=== PATIENT | male | born 1930 | race Caucasian/White ===

== ENCOUNTER → 2016-03-16 | Outpatient (CLI) | payer MEDICARE ==
[~2016-03-16] MED LIST: ACET325S8 PO; ALLO300 PO; ALPR.25 PO; ASPI81 PO; ESCI10TA PO; GLIM4TAB PO; HYDR12.56 PO; LOSA100T PO; METF1000 PO; ROSU20 PO; TAB-TAB PO; VITA500T10 PO; VITD400 PO
--- NOTE | 2016-03-18 08:47 | RSPPFT ---
DATE OF PROCEDURE: 03/16/16 COMMENTS: Spirometry with FVC of 1.9 predicted 4.3, FEV1 of 1.5 predicted 2.6, FEV1/FVC ratio 77% predicted 61%. Lung volumes show decreased TLC at at 3.9 predicted 7.2. DLCO is 28% of predicted. IMPRESSION: On the basis of the above, patient has a severe restrictive lung defect.
== END ==
LOC: HRSP 10:53
PROVIDERS: ATTEND Internal Medicine Pulmonary Disease
DX: J84.10 Pulmonary fibrosis, unspecified (principal)
CPT/HCPCS: 94060; 94726; 94729

== ENCOUNTER 2017-08-04 10:19 | Emergency (ER) | payer MEDICARE ==
[2017-08-04 10:33] VITALS: BP 137/70; PULSE 106; RESP 15; TEMP 98.4; O2SAT 94
--- NOTE | 2017-08-04 10:41 | PD ---
HPI Chief Complaint: GI Complaint Time Seen by Provider: 10:38 Travel History International Travel<30 days: No Contact w/Intl Traveler<30days: No Traveled to known affect area: No History of Present Illness HPI Patient comes in complaining of 2 days worth of black tarry stools, and now associated with generalized weakness and dizziness. Patient denies any alleviating or aggravating factors. Patient denies any associated factors such as fever, chest pain, abdominal pain, back pain, flank pain, sore throat/cough/ runny nose. Past medical history significant for oral surgery, hard of hearing, dizziness, quadruple bypass CABG in 2003, hypercholesterolemia, hypertension, pulmonary fibrosis, sleep apnea, bladder tumor removed, kidney stones, type 2 diabetes, PFSH Past Medical History Arthritis: Yes Asthma: No Autoimmune Disease: No Heart Rhythm Problems: No Cancer: Yes (BLADDER, SKIN) Cardiac Catheterization: Yes (NO STENTS) Cardiovascular Problems: Yes (BYPASS) High Cholesterol: Yes Chest Pain: No Congestive Heart Failure: No COPD: No Cerebrovascular Accident: No Diabetes: Yes (TYPE 2) Endocrine: Yes GERD: No Glaucoma: No Genitourinary: Yes (BLADDER TUMOR (REMOVED)) Headaches: No Hepatitis: No Hiatal Hernia: No Hypertension: Yes Immune Disorder: Yes Kidney Stones: Yes (IN AND ) Musculoskeletal: No Neurologic: No Psychiatric: Yes (CLAUSTRAPHOBIA, ANXIETY) Respiratory: Yes (PULMONARY FIBROSIS) Myocardial Infarction: No Renal Failure: No Seizures: No Sleep Apnea: Yes Thyroid Disease: No Ulcer: No Past Surgical History Abdominal Surgery: No AICD: No Body Medical Devices: STERNAL WIRES Cardiac Surgery: Yes (CABG X4) Coronary Artery Bypass Graft: Yes (2003) Ear Surgery: No Endocrine Surgery: No Eye Surgery: No Genitourinary Surgery: Yes (BLADDER CANCER TRANS URETHRAL) Gynecologic Surgery: No Oral Surgery: Yes (WISDOM TEETH REMOVED X4; PERMANENT UPPER BRIDGE) Pacemaker: No Thoracic Surgery: No Social History Alcohol Use: Yes (GLASS OF WINE NIGHTLY) Tobacco Use: No (QUIT 1980) Substance Use: No Allergies-Medications (Allergen,Severity, Reaction): Coded Allergies: No Known Allergies (Verified , 08/02/14) Reported Meds & Prescriptions Reported Meds & Active Scripts Active Reported Acetaminophen 325 Mg Tab 325 Mg PO DAILY Vitamin D-3 (Cholecalciferol) 400 Unit Tab 400 Unit PO DAILY Multivitamin (Multivitamins) 1 Tab Tab 1 Tab PO DAILY Metformin HCl 1,000 Mg Tab 1,000 Mg PO DAILY Losartan Potassium 100 MG (Losartan Potassium) 100 Mg Tab 100 Mg PO DAILY Glimepiride 4 Mg Tab 4 Mg PO BID Escitalopram Oxalate 10 Mg Tab 10 Mg PO DAILY Xanax 0.25 Mg (Alprazolam) Alprazolam 0.25 mg Tab 1 Tab PO BID Aspirin 81 Mg Tab 81 Mg PO DAILY Vitamin C (Ascorbic Acid) 500 Mg Tab 500 Mg PO DAILY Hctz (Hydrochlorothiazide) 12.5 Mg Cap 12.5 Mg PO DAILY Zyloprim (Allopurinol) 300 Mg Tab 300 Mg PO DAILY Crestor (Rosuvastatin Calcium) 20 Mg Tab 20 Mg PO DAILY Review of Systems General / Constitutional: No: Fever Eyes: No: Visual changes HENT: No: Headaches Cardiovascular: No: Chest Pain or Discomfort Respiratory: No: Shortness of Breath Gastrointestinal: Positive: Other Genitourinary: No: Dysuria Musculoskeletal: No: Pain Skin: No Rash Neurologic: No: Weakness Psychiatric: No: Depression Endocrine: No: Polydipsia Hematologic/Lymphatic: No: Easy Bruising Physical Exam Narrative GENERAL: SKIN: Warm and dry. HEAD: Atraumatic. Normocephalic. EYES: Pupils equal and round. No scleral icterus. No injection or drainage. ENT: No nasal bleeding or discharge. Mucous membranes pink and moist. NECK: Trachea midline. No JVD. CARDIOVASCULAR: Regular rate and rhythm. RESPIRATORY: No accessory muscle use. Clear to auscultation. Breath sounds equal bilaterally. GASTROINTESTINAL: Abdomen soft, non-tender, nondistended. MUSCULOSKELETAL: Extremities without clubbing, cyanosis, or edema. No obvious deformities. NEUROLOGICAL: Awake and alert. No obvious cranial nerve deficits. Motor grossly within normal limits. Five out of 5 muscle strength in the arms and legs. Normal speech. PSYCHIATRIC: Appropriate mood and affect; insight and judgment normal. Data Data Last Documented VS Vital Signs Date Time Temp Pulse Resp B/P (MAP) Pulse Ox O2 Delivery O2 Flow Rate FiO2 08/04/17 10:53 95 16 140/81 (100) 96 Room Air 08/04/17 10:33 98.4 Orders Orders Electrocardiogram (08/04/17 10:42) B-Type Natriuretic Peptide (08/04/17 10:42) Ckmb (Isoenzyme) Profile (08/04/17 10:42) Complete Blood Count With Diff (08/04/17 10:42) Comprehensive Metabolic Panel (08/04/17 10:42) Prothrombin Time / Inr (Pt) (08/04/17 10:42) Act Partial Throm Time (Ptt) (08/04/17 10:42) Troponin I (08/04/17 10:42) Lipase (08/04/17 10:42) Ecg Monitoring (08/04/17 10:42) Bilateral Bp Monitoring (08/04/17 10:42) Iv Access Insert/Monitor (08/04/17 10:42) Oximetry (08/04/17 10:42) Sodium Chloride 0.9% Flush (Ns Flush) (08/04/17 10:45) Type And Screen (08/04/17 10:42) Ct Abd/Pel W/O Iv Contrast (08/04/17 10:42) Labs Laboratory Tests Test 08/04/17 11:00 White Blood Count 8.7 TH/MM3 Red Blood Count 4.62 MIL/MM3 Hemoglobin 13.3 GM/DL Hematocrit 40.6 % Mean Corpuscular Volume 87.9 FL Mean Corpuscular Hemoglobin 28.8 PG Mean Corpuscular Hemoglobin Concent 32.8 % Red Cell Distribution Width 14.9 % Platelet Count 249 TH/MM3 Mean Platelet Volume 8.0 FL Neutrophils (%) (Auto) 71.3 % Lymphocytes (%) (Auto) 17.9 % Monocytes (%) (Auto) 8.7 % Eosinophils (%) (Auto) 1.5 % Basophils (%) (Auto) 0.6 % Neutrophils # (Auto) 6.2 TH/MM3 Lymphocytes # (Auto) 1.6 TH/MM3 Monocytes # (Auto) 0.8 TH/MM3 Eosinophils # (Auto) 0.1 TH/MM3 Basophils # (Auto) 0.1 TH/MM3 CBC Comment DIFF FINAL Differential Comment Prothrombin Time 10.6 SEC Prothromb Time International Ratio 1.0 RATIO Activated Partial Thromboplast Time 26.6 SEC Blood Urea Nitrogen 21 MG/DL Creatinine 0.90 MG/DL Random Glucose 141 MG/DL Total Protein 7.5 GM/DL Albumin 3.4 GM/DL Calcium Level 9.4 MG/DL Alkaline Phosphatase 62 U/L Aspartate Amino Transf (AST/SGOT) 21 U/L Alanine Aminotransferase (ALT/SGPT) 18 U/L Total Bilirubin 1.1 MG/DL Sodium Level 143 MEQ/L Potassium Level 3.6 MEQ/L Chloride Level 106 MEQ/L Carbon Dioxide Level 26.7 MEQ/L Anion Gap 10 MEQ/L Estimat Glomerular Filtration Rate 80 ML/MIN Total Creatine Kinase 59 U/L Troponin I LESS THAN 0.02 NG/ML B-Type Natriuretic Peptide 50 PG/ML Lipase 52 U/L MDM Medical Decision Making Medical Screen Exam Complete: Yes Emergency Medical Condition: Yes Medical Record Reviewed: Yes Differential Diagnosis GI bleed versus anemia versus dehydration versus pancreatitis versus hepatitis Narrative Course CBC shows no evidence of leukocytosis, no anemia with a H&H of 13/40, normal platelet count, and no left shift Patient's blood type is A- Coagulation profile is within normal limits Electrolytes are all within normal limits, normal kidney liver and pancreatic functions. First set of cardiac enzymes negative, beta natruretic peptide also normal at 50 Diagnosis Primary Impression: Melena Additional Impression: Hemodynamically stable without anemia Admitting Information Admitting Physician Requests: Observation Referrals: Alen Betancourt MD TO EVALUATE FOR YOUR KIDNEY STONE, 9MM PRESENT ON THE BEGINNING OF YOUR LEFT URETER (PROXIMAL URETERAL STONE) Archana Wade MD PLEASE CALL TO MAKE A FOLLOWUP APPOINTMENT AND FURTHER EVALUATION Patient Instructions: General Instructions Disposition: 01 DISCHARGE HOME Condition: Stable Sawyer Cartwright MD August 04, 2017 10:41
[2017-08-04] MEDS ORDERED: SODIUM CHLORIDE 0.9% FLUSH 10 ML FLUSH IVF PRN (10:45)
[2017-08-04 10:53] VITALS: BP_SYST 137; BP_SYST 140; BP_DIAS 78; BP_DIAS 81; PULSE 93; PULSE 95; RESP 16; O2SAT 96
[2017-08-04 11:12] LABS: AUTOMATED NEUTROPHIL # 6.2 TH/MM3 (1.8-7.7); BASOPHIL # 0.1 TH/MM3 (0-0.2); BASOPHIL % 0.6 % (0.0-2.0); EOSINOPHIL # 0.1 TH/MM3 (0-0.4); EOSINOPHIL % 1.5 % (0.0-4.0); HEMATOCRIT 40.6 % (39.0-51.0); HEMOGLOBIN 13.3 GM/DL (13.0-17.0); LYMPH % 17.9 % (9.0-44.0); LYMPHOCYTE # 1.6 TH/MM3 (1.0-4.8); MEAN CELL VOLUME 87.9 FL (80.0-100.0); MEAN CORPUSCULAR HEMOGLOBIN 28.8 PG (27.0-34.0); MEAN CORPUSCULAR HGB CONC 32.8 % (32.0-36.0); MONO % 8.7 % (0.0-8.0); MONOCYTE # 0.8 TH/MM3 (0-0.9); NEUT % 71.3 % (16.0-70.0); PLATELET COUNT 249 TH/MM3 (150-450); RED BLOOD COUNT 4.62 MIL/MM3 (4.50-5.90); RED CELL DISTRIBUTION WIDTH 14.9 % (11.6-17.2); WHITE BLOOD COUNT 8.7 TH/MM3 (4.0-11.0)
[2017-08-04 11:23] LABS: PROTHROMBIN TIME - PATIENT 10.6 SEC (9.8-11.6)
[2017-08-04 11:31] LABS: ALBUMIN 3.4 GM/DL (3.4-5.0); AST (GOT) 21 U/L (15-37); BICARBONATE 26.7 MEQ/L (21.0-32.0); BLOOD UREA NITROGEN 21 MG/DL (7-18); CALCIUM 9.4 MG/DL (8.5-10.1); CHLORIDE 106 MEQ/L (98-107); GLOMERULAR FILTRATION RATE 80 ML/MIN (>89); GLUCOSE,RANDOM 141 MG/DL (74-106); SODIUM (NA) 143 MEQ/L (136-145)
[2017-08-04 11:37] LABS: ALKALINE PHOSPHATASE 62 U/L (45-117); ALT (GPT) 18 U/L (12-78); TOTAL BILIRUBIN ADULT 1.1 MG/DL (0.2-1.0); TOTAL PROTEIN 7.5 GM/DL (6.4-8.2); TROPONIN I LESS THAN 0.02 NG/ML (0.02-0.05)
--- NOTE | 2017-08-04 13:01 | RADRPT ---
EXAM DATE: 08/04/2017 12:43 PM EDT AGE/SEX: 86 years / Male INDICATIONS: Weakness and dark stools. CLINICAL DATA: This is the patient's initial encounter. Patient reports that signs and symptoms have been present for 2 days and indicates a pain score of 4/10. MEDICAL/SURGICAL HISTORY: Carcinoma, bladder. Renal calculi. Diabetes. Cardiovascular diseas e, hypertension, . Bladder mass removed. RADIATION DOSE: 8.37 CTDI (mGy) COMPARISON: POI, MR ABDOMEN W/O CONTRAST, 11/25/2009. . TECHNIQUE: Multiple contiguous axial images were obtained through the abdomen. Images were obtained using multiple row detector helical technique. Using dose reduction techniques, radiation dose was ke pt as low as reasonably achievable to obtain optimal diagnostic quality images. FINDINGS: LOWER LUNGS: Senescent changes with minimal bibasilar airspace consolidation. Very subtle loculated left basilar pleural effusion. LIVER: Multiple small calcifications in the liver. No significant intrahepatic ductal dilatation or gross mass. Gallbladder is unremarkable by CT. SPLEEN: Multiple splenic calcifications. PANCREAS: Slight prominence of the pancreatic tail similar to prior MRI report. Otherwise, unremarka ble by CT. KIDNEYS: 9 mm calcified calculus in the proximal left ureter with resultant mild to moderate left-si ded hydronephrosis. Additional ill-defined calcifications in the inferior pole calyces on the left. T here is also a 5 mm calyceal calcification in the inferior pole of the right kidney. Multiple bilater al cysts some of which are too small to fully characterize. ADRENAL GLANDS: Unremarkable. AORTA: Linnea-aneurysmal. BOWEL/MESENTERY: Large amount of stool in the rectum. Mild sigmoid diverticulosis and scattered colo enriqueta diverticula without significant inflammatory change. No dilated loops of bowel. No free air or fl uid collections. ABDOMINAL WALL: Small fat-containing periumbilical anterior abdominal wall hernia. Bilateral fat-con taining inguinal hernias. RETROPERITONEUM: No evidence of adenopathy in the retrocrural, para-aortic, or deep pelvic regions. BLADDER: Decompressed but otherwise unremarkable by CT. REPRODUCTIVE: No abnormal masses or calcifications seen. BONY STRUCTURES: Multilevel degenerative spondylosis without abnormal focal lytic or blastic bony le ynes. CONCLUSION: 1. 9 mm calcified left proximal ureteral calculus with mild to moderate left-sided hydronephrosis. 2. There are 2 additional ill-defined left inferior pole calyceal calculi and a 5 mm calyceal calcul us in the inferior pole of the right kidney. 3. Rectal stool impaction. 4. Colonic diverticulosis without significant inflammation to suggest diverticulitis. 5. Very subtle loculated left basilar pleural effusion. 6. Ancillary findings include small fat-containing periumbilical anterior abdominal wall hernia, fina ateral inguinal hernias, stable prominence of the pancreatic tail, splenic and hepatic calcifications consistent with prior granulomatous disease and degenerative spondylosis of the lower lumbar spine. Electronically signed by: Ad Henning MD 08/04/2017 1:00 PM EDT
--- NOTE | 2017-08-04 13:50 | EKG ---
Date Performed: 08/04/2017 Time Performed: 11:11:39 PTAGE: 86 years EKG: Sinus rhythm WITH FIRST DEGREE AV BLOCK POSSIBLE LEFT ATRIAL ENLARGEMENT RIGHT BUNDLE BRANCH BLOCK LEFT ANTERIOR FASCICULAR BLOCK LEFT VENTRICULAR HYPERTROPHY AND ST-T CHANGE ABNORMAL ECG PREVIOUS TRACING : 11/22/2008 07.43 DOCTOR: Ceferino Ross Interpretating Date/Time 08/04/2017 13:49:59
[2017-08-04] MEDS ORDERED: TRAM50 PO (16:41)
== END 2017-08-04 17:00 | disposition home or self-care (01) ==
LOC: NEPE 10:19
DX: K92.1 Melena (principal); E11.9 Type 2 diabetes mellitus without complications; E78.00 Pure hypercholesterolemia, unspecified; I10 Essential (primary) hypertension; R94.31 Abnormal electrocardiogram [ECG] [EKG]; Z79.84 Long term (current) use of oral hypoglycemic drugs; Z87.891 Personal history of nicotine dependence
CPT/HCPCS: 74176; 80053; 82550; 83690; 83880; 84484; 85025; 85610; 85730; 86850; 86900; 86901; 93005; 99285